=== PATIENT | male | born 1955 | race American Indian/Alaskan Native ===

== ENCOUNTER 2017-09-04 17:08 | Inpatient (IN) | payer MEDICAID, MEDICARE, OTHER ==
[2017-09-04 18:18] LABS: ANION GAP 19.6; CHLORIDE,CL 81 mmol/L (101-111); SODIUM,NA 124 mmol/L (135-145)
--- NOTE | 2017-09-04 19:12 | EDM.PDOC ---
Scribed by Lidya Fang 09/04/17 [id number] for Gisel Araujo NP ED HPI GENERAL MEDICAL PROBLEM - General Chief Complaint: Head Injury Stated Complaint: HEAT [id number] AGO, CANT WALK, [id number] Time Seen by Provider: 09/04/17 17:34 Source of Information: Reports: Patient, RN, RN Notes Reviewed History Limitations: Reports: No Limitations - History of Present Illness INITIAL COMMENTS - FREE TEXT/NARRATIVE: Patient fell a couple of days ago and hit his head. States he did not loose consciousness. He has no pain. He does have trouble walking. Drinks alcohol quite a bit. Patient denies dizziness. Location: Reports: Head Severity: Mild Improves with: Reports: None Worsens with: Reports: None Associated Symptoms: Reports: No Other Symptoms - Related Data Allergies Allergy/AdvReac Type Severity Reaction Status Date / Time No Known Allergies Allergy Verified 09/04/17 17:27 Home Meds: Home Meds . [No Known Home Meds] 09/04/17 [History] Social & Family History - Family History Family Medical History: Noncontributory ED ROS GENERAL - Review of Systems Review Of Systems: ROS reveals no pertinent complaints other than HPI. ED EXAM, HEAD INJURY - Physical Exam Exam: See Below Exam Limited By: No Limitations General Appearance: Alert, WD/WN, No Apparent Distress Head: Atraumatic, Normocephalic Eyes: Bilateral Eye: Normal Inspection Ears: Other (very hard of hearing) Nose: Normal Inspection, Normal Mucousa, No Blood Throat/Mouth: Normal Inspection, Normal Lips, Normal Teeth, Normal Gums, Normal Oropharynx, Normal Voice, No Airway Compromise Neck: Non-Tender, Full Range of Motion, Normal Alignment, Normal Inspection Respiratory: Rhonchi (right base.) Cardiovascular: Normal Peripheral Pulses, Regular Rate, Rhythm, No Edema, No Gallop, No JVD, No Murmur, No Rub GI/Abdominal Exam: Normal Bowel Sounds, Soft, Non-Tender, No Organomegaly, No Distention, No Abnormal Bruit, No Mass (Male) Exam: Deferred Rectal (Males) Exam: Deferred Back Exam: Normal Inspection Extremities: Other (decreased range of motion) Skin: Normal Color, Warm/Dry Course - Vital Signs Last Recorded V/S: Last Vital Signs Temp 98.2 F 09/04/17 18:52 Pulse 103 H 09/04/17 18:52 Resp 20 09/04/17 18:52 BP 128/68 09/04/17 18:52 Pulse Ox 94 L 09/04/17 18:52 - Orders/Labs/Meds Labs: Laboratory Tests 09/04/17 09/04/17 09/04/17 Range/Units 17:48 17:48 18:08 WBC 7.7 (5.0-10.0) 10^3/uL RBC 5.27 (4.6-6.2) 10^6/uL Hgb 17.0 (14.0-18.0) g/dL Hct 47.0 (40.0-54.0) % MCV 89.2 (80-100) fL MCH 32.3 (27.0-34.0) pg MCHC 36.2 H (33.0-35.0) g/dL Plt Count 177 (150-450) 10^3/uL Neut % (Auto) 65.8 (42.2-75.2) % Lymph % (Auto) 14.7 L (20.5-50.1) % [place] % (Auto) 19.1 H (2-8) % Eos % (Auto) 0.1 L (1.0-3.0) % Baso % (Auto) 0.3 (0.0-1.0) % Sodium 124 L (135-145) mmol/L Potassium 2.6 L (3.6-5.0) mmol/L Chloride 81 L (101-111) mmol/L Carbon Dioxide 26.0 (21.0-31.0) mmol/L Anion Gap 19.6 BUN 15 (7-18) mg/dL Creatinine 0.7 (0.6-1.3) mg/dL Est Cr Clr Drug Dosing 90.09 mL/min Estimated GFR (MDRD) > 60 BUN/Creatinine Ratio 21.42 Glucose 149 H (74-105) mg/dL Calcium 8.3 L (8.4-10.2) mg/dl Total Bilirubin 2.5 H (0.2-1.0) mg/dL AST 72 H (10-42) IU/L ALT 62 H (10-60) IU/L Alkaline Phosphatase 76 (42-121) IU/L Total Protein 8.8 H (6.7-8.2) g/dl Albumin 3.8 (3.2-5.5) g/dl Globulin 5.0 Albumin/Globulin Ratio 0.76 Urine Color Yellow (YELLOW) Urine Appearance Slightly cloudy (CLEAR) Urine pH 6.5 (5.0-9.0) Ur Specific [place] 1.015 (1.005-1.030) Urine Protein 100 H (NEGATIVE) Urine Glucose (UA) 100 H (NEGATIVE) Urine Ketones 40 H (NEGATIVE) Urine Occult Blood Trace-intact H (NEGATIVE) Urine Nitrite Negative (NEGATIVE) Urine Bilirubin Small H (NEGATIVE) Urine Urobilinogen >=8.0 H (0.2-1.0) mg/dL Ur Leukocyte Esterase Negative (NEGATIVE) Urine RBC 10-20 H /HPF Urine WBC 0-5 (0-5/HPF) /HPF Ur Epithelial Cells Rare /HPF Amorphous Sediment Few (0/HPF) /HPF Urine Bacteria Few (0-FEW/HPF) /HPF Urine Mucus Few H /LPF Urine Opiates Screen (NEGATIVE) Ur Oxycodone Screen (NEGATIVE) Urine Methadone Screen (NEGATIVE) Ur Barbiturates Screen (NEGATIVE) U Tricyclic Antidepress (NEGATIVE) Ur Phencyclidine Scrn (NEGATIVE) Ur Amphetamine Screen (NEGATIVE) U Methamphetamines Scrn (NEGATIVE) Urine MDMA Screen (NEGATIVE) U Benzodiazepines Scrn (NEGATIVE) Urine Cocaine Screen (NEGATIVE) U Marijuana (THC) Screen (NEGATIVE) Ethyl Alcohol < 5 mg/dL 09/04/17 Range/Units 18:08 WBC (5.0-10.0) 10^3/uL RBC (4.6-6.2) 10^6/uL Hgb (14.0-18.0) g/dL Hct (40.0-54.0) % MCV (80-100) fL MCH (27.0-34.0) pg MCHC (33.0-35.0) g/dL Plt Count (150-450) 10^3/uL Neut % (Auto) (42.2-75.2) % Lymph % (Auto) (20.5-50.1) % [place] % (Auto) (2-8) % Eos % (Auto) (1.0-3.0) % Baso % (Auto) (0.0-1.0) % Sodium (135-145) mmol/L Potassium (3.6-5.0) mmol/L Chloride (101-111) mmol/L Carbon Dioxide (21.0-31.0) mmol/L Anion Gap BUN (7-18) mg/dL Creatinine (0.6-1.3) mg/dL Est Cr Clr Drug Dosing mL/min Estimated GFR (MDRD) BUN/Creatinine Ratio Glucose (74-105) mg/dL Calcium (8.4-10.2) mg/dl Total Bilirubin (0.2-1.0) mg/dL AST (10-42) IU/L ALT (10-60) IU/L Alkaline Phosphatase (42-121) IU/L Total Protein (6.7-8.2) g/dl Albumin (3.2-5.5) g/dl Globulin Albumin/Globulin Ratio Urine Color (YELLOW) Urine Appearance (CLEAR) Urine pH (5.0-9.0) Ur Specific [place] (1.005-1.030) Urine Protein (NEGATIVE) Urine Glucose (UA) (NEGATIVE) Urine Ketones (NEGATIVE) Urine Occult Blood (NEGATIVE) Urine Nitrite (NEGATIVE) Urine Bilirubin (NEGATIVE) Urine Urobilinogen (0.2-1.0) mg/dL Ur Leukocyte Esterase (NEGATIVE) Urine RBC /HPF Urine WBC (0-5/HPF) /HPF Ur Epithelial Cells /HPF Amorphous Sediment (0/HPF) /HPF Urine Bacteria (0-FEW/HPF) /HPF Urine Mucus /LPF Urine Opiates Screen Negative (NEGATIVE) Ur Oxycodone Screen Negative (NEGATIVE) Urine Methadone Screen Negative (NEGATIVE) Ur Barbiturates Screen Negative (NEGATIVE) U Tricyclic Antidepress Negative (NEGATIVE) Ur Phencyclidine Scrn Negative (NEGATIVE) Ur Amphetamine Screen Negative (NEGATIVE) U Methamphetamines Scrn Negative (NEGATIVE) Urine MDMA Screen Negative (NEGATIVE) U Benzodiazepines Scrn Negative (NEGATIVE) Urine Cocaine Screen Negative (NEGATIVE) U Marijuana (THC) Screen Negative (NEGATIVE) Ethyl Alcohol mg/dL - Radiology Interpretation Free Text/Narrative:: Head CT without IV contrast: No acute findins Xray Pelvis: No acute findings See rad report Departure - Departure Time of Disposition: 19:11 Disposition: Refer to Observation Condition: Fair Clinical Impression: Hypokalemia, Hyponatremia, Hypochloremia, Elevated liver enzymes, Alcohol abuse Fall Qualifiers: Encounter type: initial encounter Qualified Code(s): W19.XXXA - Unspecified fall, initial encounter - Discharge Information Forms: ED Department Discharge I have read and agree with the documentation that has been completed regarding this visit. By signing this record, I attest that the documentation was completed in my physical presence and is an accurate record of the encounter.
[2017-09-04] MEDS ORDERED: Ibuprofen 400 MG Tab PO PRN (20:57)
[2017-09-04] MEDS ORDERED: Zolpidem 5 MG Tab PO PRN (20:57)
[2017-09-04] MEDS ORDERED: Ondansetron 4 MG/2 ML SDV IVPUSH PRN (20:57)
--- NOTE | 2017-09-04 21:04 | PCM.HP ---
H&P History of Present Illness - General Date of Service: 09/04/17 Admit Problem/Dx: Admission Diagnosis/Problem Admission Diagnosis/Problem Hypokalemia Source of Information: Patient, Old Records (From [facility] and [facility]), Provider ( From the ER) - History of Present Illness Initial Comments - Free Text/Narative: The patient is a 61-year-old gentleman who is a poor historian. He says he is continuing with the family including granddaughter. He is taking no medication. No significant prior ER visit or visit at [facility]. He was worked up for hearing loss. The patient was brought into the emergency room by family with concern of frequent falling. He says he fell a few days ago because of pain in the leg. There is really no reliable information what happened, if there was any syncopal episode or loss of consciousness. He says he has pain in the left upper leg. According to staff the patient has a history of heavy alcohol intake. He denies alcohol intake, admits smoking 1 pack of cigarettes a day. He says he is not taking any medications. - Related Data Allergies/Adverse Reactions: Allergies Allergy/AdvReac Type Severity Reaction Status Date / Time No Known Allergies Allergy Verified 09/04/17 20:18 Home Medications: Home Meds . [No Known Home Meds] 09/04/17 [History] Past Medical History Musculoskeletal History: Reports: Other (See Below) Other Musculoskeletal History: degenerative disc disease lumbosacral - Past Surgical History Neurological Surgical History: Reports: Lumbar Spine Other Neurological Surgeries/Procedures: L5-S1 lumbar spinal stenosis Social & Family History - Family History Family Medical History: Noncontributory - Tobacco Use Smoking Status *Q: Current Every Day Smoker Years of Tobacco use: 30 Packs/Tins Daily: 1 Tobacco Use Comment: smokes 1 cigarette/day for unknown amount of years - Caffeine Use Caffeine Use: Reports: None - Recreational Drug Use Recreational Drug Use: No H&P Review of Systems - Review of Systems: Review Of Systems: See Below General: Denies: Fever, Chills Pulmonary: Reports: Cough. Denies: Sputum Cardiovascular: Denies: Chest Pain Gastrointestinal: Denies: Abdominal Pain, Diarrhea, Nausea Genitourinary: Denies: Dysuria Musculoskeletal: Reports: Leg Pain (Left upper leg) Neurological: Denies: Headache Exam - Exam Exam: See Below - Vital Signs Vital Signs: Last Vital Signs Temp 36.2 C 09/04/17 19:53 Pulse 100 09/04/17 19:53 Resp 18 09/04/17 19:53 BP 136/72 09/04/17 19:53 Pulse Ox 97 09/04/17 19:53 Weight: 54.431 kg - Exam General: Alert, Oriented Neck: Supple Lungs: Clear to Auscultation, Normal Respiratory Effort. No: Rales Cardiovascular: Regular Rate, Regular Rhythm GI/Abdominal Exam: Normal Bowel Sounds, Soft, Non-Tender Extremities: No Pedal Edema, Other (Good range of motion, good strength in bilateral lower extremities. No significant tenderness on examination.) Neuro Extensive - Mental Status: Alert, Oriented x3, Normal Mood/Affect, Normal Cognition Psychiatric: Alert, Normal Affect, Normal Mood - Patient Data Result Diagrams: 09/04/17 17:48 09/04/17 17:48 Imaging Impressions Last 24 hrs: CT of the head and x-ray of the pelvis showed no significant acute change. *Q Meaningful Use (ADM) - VTE *Q VTE Criteria *Q: - Stroke *Q Stroke Criteria *Q: - AMI *Q AMI Criteria *Q: - Problem List (1) Elevated liver enzymes SNOMED Code(s): 596281322 ICD Code: R74.8 - ABNORMAL LEVELS OF OTHER SERUM ENZYMES Status: Acute Current Visit: Yes (2) Fall SNOMED Code(s): 2719694 ICD Code: W19.XXXA - UNSPECIFIED FALL, INITIAL ENCOUNTER Status: Acute Current Visit: Yes Qualifiers: Encounter type: initial encounter Qualified Code(s): W19.XXXA - Unspecified fall, initial encounter (3) Hypokalemia SNOMED Code(s): 38346171 ICD Code: E87.6 - HYPOKALEMIA Status: Acute Current Visit: Yes (4) Hyponatremia SNOMED Code(s): 60634659 ICD Code: E87.1 - HYPO-OSMOLALITY AND HYPONATREMIA Status: Acute Current Visit: Yes Problem List Initiated/Reviewed/Updated: Yes Orders Last 24hrs: Active Orders 24 hr Category Date Time Status Patient Status [ADT] Routine ADT 09/04/17 20:57 Ordered Antiembolic Devices [RC] PER UNIT ROUTINE Care 09/04/17 20:59 Ordered Oxygen Therapy [RC] PRN Care 09/04/17 20:57 Ordered Peripheral IV Care [RC] . DIRECTED Care 09/04/17 20:59 Ordered Up With Assistance [RC] ASDIRECTED Care 09/04/17 20:57 Ordered VTE/DVT Education [RC] PER UNIT ROUTINE Care 09/04/17 20:57 Ordered Vital Signs [RC] Q4H Care 09/04/17 20:57 Ordered OT Evaluation and Treatment [CONS] Routine Cons 09/04/17 20:32 Active PT Evaluation and Treatment [CONS] Routine Cons 09/04/17 20:32 Active Regular Diet [DIET] Diet 09/04/17 Breakfast Ordered CORTISOL [REF] AM Lab 09/05/17 05:11 Ordered CPK [CREATINE KINASE,CK] [CHEM] AM Lab 09/05/17 05:11 Ordered TSH ULTRASENSITIVE [CHEM] AM Lab 09/05/17 05:11 Ordered Acetaminophen [Tylenol] Med 09/04/17 20:57 Ordered 650 mg PO Q4H PRN Heparin Sodium Med 09/04/17 22:00 Ordered 5,000 units SUBCUT Q8HR Ibuprofen [Motrin] Med 09/04/17 20:57 Ordered 400 mg PO Q6H PRN NS + KCl 20mEq/L [Normal Saline with 20 mEq KCl] 1,000 Med 09/04/17 20:45 Active ml IV ASDIRECTED Nicotine [Habitrol] Med 09/05/17 09:00 Active 14 mg TRDERM DAILY Ondansetron [Zofran] Med 09/04/17 20:57 Ordered 4 mg IVPUSH Q6H PRN Potassium Chloride [KCl 10 MEQ in Water 100 ML] 10 meq Med 09/04/17 20:45 Active Premix Bag 1 bag IV Q2H Sodium Chloride 0.9% [Saline Flush] Med 09/04/17 20:57 Ordered 10 ml FLUSH ASDIRECTED PRN Zolpidem [Ambien] Med 09/04/17 20:57 Ordered 5 mg PO BEDTIME PRN Antiembolic Hose [OM.PC] Per Unit Routine Oth 09/04/17 20:58 Ordered Peripheral IV Insertion Adult [OM.PC] Routine Oth 09/04/17 20:57 Ordered Resuscitation Status Routine Resus Stat 09/04/17 20:57 Ordered Medication Orders Potassium Chloride 10 meq/ (Premix) 100 mls @ 100 mls/hr IV Q2H TIA Stop: 09/05/17 07:44 Potassium Chloride/Sodium Chloride (Normal Saline With 20 Meq Kcl) 1,000 mls @ 75 mls/hr IV ASDIRECTED [facility] Nicotine (Habitrol) 14 mg TRDERM DAILY [facility] Assessment/Plan Comment:: The patient is a 61-year-old gentleman who was brought in after family concern of falling. #1 frequent falling per history The patient appears to have no neurological deficit, CT of the head without contrast showed no acute change. He appears to have good strength in extremities. 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
[2017-09-04] MEDS ORDERED: guaiFENesin 100 MG/5 ML Soln 5 ML UD Cup PO PRN (21:06)
[2017-09-04] MEDS: Potassium Chloride 10 MEQ in Premix Bag 1 BAG IV SCH ×3 (21:40→23:53)
[2017-09-04] MEDS: NS + KCl 20mEq/L 1,000 ML IV SCH (21:40)
[2017-09-04] MEDS: Heparin Sodium 5,000 Units/ML Vial SUBCUT SCH (21:44)
[2017-09-05] MEDS: Potassium Chloride 10 MEQ in Premix Bag 1 BAG IV SCH ×6 (01:01→06:12)
[2017-09-05] MEDS: Heparin Sodium 5,000 Units/ML Vial SUBCUT SCH ×3 (06:13→21:24)
[2017-09-05 07:06] LABS: ANION GAP 16.3; CHLORIDE,CL 89 mmol/L (101-111); SODIUM,NA 126 mmol/L (135-145)
[2017-09-05] MEDS: Nicotine 14 MG/24 Hr Patch TRDERM SCH (08:33)
[2017-09-05] MEDS: NS + KCl 20mEq/L 1,000 ML IV SCH (11:24)
--- NOTE | 2017-09-05 13:25 | CR ---
Clinical history: 61-year-old male with left knee pain. Interpretation: Dense linear arteriosclerotic calcifications soft tissues (diabetic?). Subtle asymmetric narrowing medial joint compartment with some reactive sclerosis suggesting early ar thritis. No bursal effusion. Homogeneous normal bone density without sign of left knee fracture, dislocation or radiopaque loose j oint body. CONCLUSION: Mild osteoarthritis. Arteriovascular disease. No fractures.
[2017-09-05] MEDS: Potassium Chloride 10 MEQ Tab.ER PO SCH ×2 (14:08→21:18)
[2017-09-05] MEDS: Folic Acid 1 MG Tab PO SCH (21:18)
[2017-09-05] MEDS: Multivitamins,Therapeutic Tab PO SCH (21:18)
[2017-09-05] MEDS: Thiamine 100 MG Tab PO SCH (21:18)
[2017-09-06] MEDS: NS + KCl 20mEq/L 1,000 ML IV SCH ×2 (00:46→17:15)
[2017-09-06] MEDS: Heparin Sodium 5,000 Units/ML Vial SUBCUT SCH ×3 (05:40→21:53)
[2017-09-06 07:11] LABS: ANION GAP 12.5; CHLORIDE,CL 93 mmol/L (101-111); SODIUM,NA 127 mmol/L (135-145)
[2017-09-06] MEDS: Nicotine 14 MG/24 Hr Patch TRDERM SCH (08:30)
[2017-09-06] MEDS: Acetaminophen 325 MG Tab PO PRN (10:13)
--- NOTE | 2017-09-06 10:21 | PCM.PN ---
- General Info Date of Service: 09/05/17 Subjective Update: Continues to have pain in the left lower extremity but only with activity. No pain at rest. He is able to move all extremities well but needs 1-2 person assist to get out of bed. They drawn during The head low-grade temperature. He continues to cough. Functional Status: Denies: Pain Controlled (Low-grade) - Review of Systems General: Reports: Fever Pulmonary: Denies: Shortness of Breath Cardiovascular: Denies: Chest Pain, Edema Genitourinary: Denies: Dysuria - Patient Data Vitals - Most Recent: Last Vital Signs Temp 38.0 C 09/06/17 07:56 Pulse 81 09/06/17 07:56 Resp 20 09/06/17 07:56 BP 122/79 09/06/17 07:56 Pulse Ox 95 09/06/17 07:56 Weight - Most Recent: 54.431 kg I&O - Last 24 Hours: Intake & Output 09/05/17 09/06/17 09/06/17 22:59 06:59 14:59 Intake Total 2000 698 120 Output Total 100 100 200 Balance 1901 598 -80 Lab Results Last 24 Hours: Laboratory Results - last 24 hr 09/06/17 09/06/17 Range/Units 06:18 06:18 WBC 6.5 (5.0-10.0) 10^3/uL RBC 4.47 L (4.6-6.2) 10^6/uL Hgb 14.3 (14.0-18.0) g/dL Hct 40.8 (40.0-54.0) % MCV 91.3 (80-100) fL MCH 32.0 (27.0-34.0) pg MCHC 35.0 (33.0-35.0) g/dL Plt Count 175 (150-450) 10^3/uL Neut % (Auto) 59.2 (42.2-75.2) % Lymph % (Auto) 21.3 (20.5-50.1) % [place] % (Auto) 18.6 H (2-8) % Eos % (Auto) 0.6 L (1.0-3.0) % Baso % (Auto) 0.3 (0.0-1.0) % Add Manual Diff Sodium 127 L (135-145) mmol/L Potassium 3.5 L (3.6-5.0) mmol/L Chloride 93 L (101-111) mmol/L Carbon Dioxide 25.0 (21.0-31.0) mmol/L Anion Gap 12.5 BUN 6 L (7-18) mg/dL Creatinine 0.4 L (0.6-1.3) mg/dL Est Cr Clr Drug Dosing 145.53 mL/min Estimated GFR (MDRD) > 60 Glucose 115 H (74-105) mg/dL Calcium 7.9 L (8.4-10.2) mg/dl Creatine Kinase 167 (26-174) IU/L Med Orders - Current: Current Medications Acetaminophen (Tylenol) 650 mg PO Q4H PRN PRN Reason: Pain (Mild 1-3)/fever Last Admin: 09/06/17 10:13 Dose: 650 mg Ceftriaxone Sodium (Rocephin) 1 gm IVPUSH Q24H [facility] Folic Acid (Folic Acid) 1 mg PO BEDTIME [facility] Last Admin: 09/05/17 21:18 Dose: 1 mg Guaifenesin (Robitussin) 100 mg PO Q6H PRN PRN Reason: Cough Heparin Sodium (Porcine) (Heparin Sodium) 5,000 units SUBCUT Q8HR [facility] Last Admin: 09/06/17 05:40 Dose: 5,000 units Potassium Chloride/Sodium Chloride (Normal Saline With 20 Meq Kcl) 1,000 mls @ 75 mls/hr IV ASDIRECTED [facility] Last Admin: 09/06/17 00:46 Dose: 75 mls/hr Azithromycin 500 mg/ Sodium (Chloride) 250 mls @ 250 mls/hr IV Q24H [facility] Ibuprofen (Motrin) 400 mg PO Q6H PRN PRN Reason: Pain (mild 1-3) Multivitamins (Thera) 1 each PO BEDTIME [facility] Last Admin: 09/05/17 21:18 Dose: 1 each Nicotine (Habitrol) 14 mg TRDERM DAILY [facility] Last Admin: 09/06/17 08:30 Dose: Not Given Ondansetron HCl (Zofran) 4 mg IVPUSH Q6H PRN PRN Reason: Nausea/Vomiting Senna/Docusate Sodium (Senna Plus) 1 tab PO BID [facility] Last Admin: 09/06/17 08:30 Dose: 1 tab Sodium Chloride (Saline Flush) 10 ml FLUSH ASDIRECTED PRN PRN Reason: Keep Vein Open Thiamine HCl (Vitamin B-1) 100 mg PO BEDTIME [facility] Last Admin: 09/05/17 21:18 Dose: 100 mg Zolpidem Tartrate (Ambien) 5 mg PO BEDTIME PRN PRN Reason: Sleep Discontinued Medications Potassium Chloride 10 meq/ (Premix) 100 mls @ 100 mls/hr IV Q2H [facility] Stop: 09/05/17 07:44 Last Admin: 09/05/17 06:12 Dose: Not Given Potassium Chloride (Klor-Con 10) 40 meq PO TID [facility] Stop: 09/05/17 21:01 Last Admin: 09/05/17 21:18 Dose: 40 meq - Exam General: Alert, Oriented Lungs: Clear to Auscultation, Normal Respiratory Effort GI/Abdominal Exam: Normal Bowel Sounds, Soft, Non-Tender Extremities: Non-Tender (Tenderness to deep palpation of the left quadriceps muscles). No: Pedal Edema - Problem List & Annotations (1) Elevated liver enzymes SNOMED Code(s): 685981837 Code(s): R74.8 - ABNORMAL LEVELS OF OTHER SERUM ENZYMES Status: Acute Current Visit: Yes (2) Fall SNOMED Code(s): 2976078 Code(s): W19.XXXA - UNSPECIFIED FALL, INITIAL ENCOUNTER Status: Acute Current Visit: Yes Qualifiers: Encounter type: initial encounter Qualified Code(s): W19.XXXA - Unspecified fall, initial encounter (3) Hypokalemia SNOMED Code(s): 97675828 Code(s): E87.6 - HYPOKALEMIA Status: Acute Current Visit: Yes (4) Hyponatremia SNOMED Code(s): 39939763 Code(s): E87.1 - HYPO-OSMOLALITY AND HYPONATREMIA Status: Acute Current Visit: Yes - Problem List Review Problem List Initiated/Reviewed/Updated: Yes - My Orders Last 24 Hours: My Active Orders 09/05/17 21:00 Docusate Sodium/Sennosides [Senna Plus] 1 tab PO BID 09/06/17 09:30 Azithromycin [Zithromax] 500 mg Sodium Chloride 0.9% [Normal Saline] 250 ml IV Q24H cefTRIAXone [Rocephin] 1 gm IVPUSH Q24H 09/06/17 10:16 CULTURE BLOOD [BC] Stat CULTURE BLOOD [BC] Stat Blood Culture x2 Reflex Set [OM.PC] Stat - Plan Plan:: The patient is a 61-year-old gentleman who was brought in after family concern of falling. #1 frequent fall per history The patient appears to have no neurological deficit, CT of the head without contrast showed no acute change. He appears to have good strength in extremities. I will ask physical and occupational therapy evaluation and treatment when available In the meantime he'll to nurses #2 severe hypokalemia We'll continue to replace that and recheck in the morning #3 hyponatremia Will hydrate the patient #4 history of significant alcohol intake The patient might have alcohol related neuropathy will supplement thiamine folate multivitamin #5 elevated blood sugar noted Rechecking the morning, Fasting Sample #6 smoking Use nicotine patch #7 DVT prophylaxis will be with subcutaneous heparin
[2017-09-06] MEDS ORDERED: Potassium Chloride 10 MEQ Tab.ER PO ONE (10:23)
--- NOTE | 2017-09-06 10:23 | PCM.PN ---
- General Info Date of Service: 09/06/17 Admission Dx/Problem (Free Text): Admission Diagnosis/Problem Admission Diagnosis/Problem Hypokalemia Subjective Update: No complains of pain today.. He is able to move all extremities well but needs 1-2 person assist to get out of bed. Today has further increased temperature. He continues to cough. Nonproductive. Could not get a sputum culture Functional Status: Reports: Pain Controlled - Review of Systems General: Reports: Fever, Weakness Pulmonary: Denies: Shortness of Breath Cardiovascular: Denies: Chest Pain Gastrointestinal: Denies: Abdominal Pain Genitourinary: Denies: Dysuria - Patient Data Vitals - Most Recent: Last Vital Signs Temp 38.0 C 09/06/17 07:56 Pulse 81 09/06/17 07:56 Resp 20 09/06/17 07:56 BP 122/79 09/06/17 07:56 Pulse Ox 95 09/06/17 07:56 Weight - Most Recent: 54.431 kg I&O - Last 24 Hours: Intake & Output 09/05/17 09/06/17 09/06/17 22:59 06:59 14:59 Intake Total 2000 698 120 Output Total 100 100 200 Balance 1901 598 -80 Lab Results Last 24 Hours: Laboratory Results - last 24 hr 09/06/17 09/06/17 Range/Units 06:18 06:18 WBC 6.5 (5.0-10.0) 10^3/uL RBC 4.47 L (4.6-6.2) 10^6/uL Hgb 14.3 (14.0-18.0) g/dL Hct 40.8 (40.0-54.0) % MCV 91.3 (80-100) fL MCH 32.0 (27.0-34.0) pg MCHC 35.0 (33.0-35.0) g/dL Plt Count 175 (150-450) 10^3/uL Neut % (Auto) 59.2 (42.2-75.2) % Lymph % (Auto) 21.3 (20.5-50.1) % [place] % (Auto) 18.6 H (2-8) % Eos % (Auto) 0.6 L (1.0-3.0) % Baso % (Auto) 0.3 (0.0-1.0) % Add Manual Diff Sodium 127 L (135-145) mmol/L Potassium 3.5 L (3.6-5.0) mmol/L Chloride 93 L (101-111) mmol/L Carbon Dioxide 25.0 (21.0-31.0) mmol/L Anion Gap 12.5 BUN 6 L (7-18) mg/dL Creatinine 0.4 L (0.6-1.3) mg/dL Est Cr Clr Drug Dosing 145.53 mL/min Estimated GFR (MDRD) > 60 Glucose 115 H (74-105) mg/dL Calcium 7.9 L (8.4-10.2) mg/dl Creatine Kinase 167 (26-174) IU/L Med Orders - Current: Current Medications Acetaminophen (Tylenol) 650 mg PO Q4H PRN PRN Reason: Pain (Mild 1-3)/fever Last Admin: 09/06/17 10:13 Dose: 650 mg Ceftriaxone Sodium (Rocephin) 1 gm IVPUSH Q24H [facility] Folic Acid (Folic Acid) 1 mg PO BEDTIME [facility] Last Admin: 09/05/17 21:18 Dose: 1 mg Guaifenesin (Robitussin) 100 mg PO Q6H PRN PRN Reason: Cough Heparin Sodium (Porcine) (Heparin Sodium) 5,000 units SUBCUT Q8HR [facility] Last Admin: 09/06/17 05:40 Dose: 5,000 units Potassium Chloride/Sodium Chloride (Normal Saline With 20 Meq Kcl) 1,000 mls @ 75 mls/hr IV ASDIRECTED [facility] Last Admin: 09/06/17 00:46 Dose: 75 mls/hr Azithromycin 500 mg/ Sodium (Chloride) 250 mls @ 250 mls/hr IV Q24H [facility] Ibuprofen (Motrin) 400 mg PO Q6H PRN PRN Reason: Pain (mild 1-3) Multivitamins (Thera) 1 each PO BEDTIME [facility] Last Admin: 09/05/17 21:18 Dose: 1 each Nicotine (Habitrol) 14 mg TRDERM DAILY [facility] Last Admin: 09/06/17 08:30 Dose: Not Given Ondansetron HCl (Zofran) 4 mg IVPUSH Q6H PRN PRN Reason: Nausea/Vomiting Senna/Docusate Sodium (Senna Plus) 1 tab PO BID [facility] Last Admin: 09/06/17 08:30 Dose: 1 tab Sodium Chloride (Saline Flush) 10 ml FLUSH ASDIRECTED PRN PRN Reason: Keep Vein Open Thiamine HCl (Vitamin B-1) 100 mg PO BEDTIME [facility] Last Admin: 09/05/17 21:18 Dose: 100 mg Zolpidem Tartrate (Ambien) 5 mg PO BEDTIME PRN PRN Reason: Sleep Discontinued Medications Potassium Chloride 10 meq/ (Premix) 100 mls @ 100 mls/hr IV Q2H [facility] Stop: 09/05/17 07:44 Last Admin: 09/05/17 06:12 Dose: Not Given Potassium Chloride (Klor-Con 10) 40 meq PO TID [facility] Stop: 09/05/17 21:01 Last Admin: 09/05/17 21:18 Dose: 40 meq - Exam General: Alert, Oriented Neck: Supple Lungs: Clear to Auscultation, Normal Respiratory Effort Cardiovascular: Regular Rate, Regular Rhythm Skin: Warm, Dry Neurological: No New Focal Deficit Psy/Mental Status: Alert, Normal Affect - Problem List & Annotations (1) Elevated liver enzymes SNOMED Code(s): 656791190 Code(s): R74.8 - ABNORMAL LEVELS OF OTHER SERUM ENZYMES Status: Acute Current Visit: Yes (2) Fall SNOMED Code(s): 4060493 Code(s): W19.XXXA - UNSPECIFIED FALL, INITIAL ENCOUNTER Status: Acute Current Visit: Yes Qualifiers: Encounter type: initial encounter Qualified Code(s): W19.XXXA - Unspecified fall, initial encounter (3) Hypokalemia SNOMED Code(s): 24173242 Code(s): E87.6 - HYPOKALEMIA Status: Acute Current Visit: Yes (4) Hyponatremia SNOMED Code(s): 44590889 Code(s): E87.1 - HYPO-OSMOLALITY AND HYPONATREMIA Status: Acute Current Visit: Yes - Problem List Review Problem List Initiated/Reviewed/Updated: Yes - My Orders Last 24 Hours: My Active Orders 09/05/17 21:00 Docusate Sodium/Sennosides [Senna Plus] 1 tab PO BID 09/06/17 09:30 Azithromycin [Zithromax] 500 mg Sodium Chloride 0.9% [Normal Saline] 250 ml IV Q24H cefTRIAXone [Rocephin] 1 gm IVPUSH Q24H 09/06/17 10:16 CULTURE BLOOD [BC] Stat CULTURE BLOOD [BC] Stat Blood Culture x2 Reflex Set [OM.PC] Stat - Plan Plan:: The patient is a 61-year-old gentleman who was brought in after family concern of falling. #1 frequent fall per history The patient appears to have no neurological deficit, CT of the head without contrast showed no acute change. He appears to have good strength in extremities. 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
[2017-09-06] MEDS: cefTRIAXone 1 GM Vial IVPUSH SCH (10:43)
[2017-09-06] MEDS: Azithromycin 500 MG in Sodium Chloride 0.9% 250 ML IV SCH (10:48)
[2017-09-06] MEDS: Thiamine 100 MG Tab PO SCH (21:54)
[2017-09-06] MEDS: Folic Acid 1 MG Tab PO SCH (21:54)
[2017-09-06] MEDS: Multivitamins,Therapeutic Tab PO SCH (21:54)
[2017-09-07] MEDS: Acetaminophen 325 MG Tab PO PRN ×4 (04:14→20:18)
[2017-09-07] MEDS: Heparin Sodium 5,000 Units/ML Vial SUBCUT SCH ×3 (06:54→21:40)
[2017-09-07] MEDS: NS + KCl 20mEq/L 1,000 ML IV SCH (06:55)
[2017-09-07 07:07] LABS: ANION GAP 12.6; CHLORIDE,CL 98 mmol/L (101-111); SODIUM,NA 132 mmol/L (135-145)
[2017-09-07] MEDS: Nicotine 14 MG/24 Hr Patch TRDERM SCH (09:14)
--- NOTE | 2017-09-07 10:51 | PCM.PN ---
- General Info Date of Service: 09/07/17 Admission Dx/Problem (Free Text): Admission Diagnosis/Problem Admission Diagnosis/Problem Hypokalemia Subjective Update: No complains of pain today. his strength and ambulation is getting better. He was operated walker and walking on the coronary door yesterday. - Review of Systems General: Reports: No Symptoms. Denies: Fever Pulmonary: Denies: Shortness of Breath Cardiovascular: Denies: Chest Pain Gastrointestinal: Denies: Abdominal Pain Musculoskeletal: Reports: Leg Pain (is getting better and ambulating better) Neurological: Denies: Confusion - Patient Data Vitals - Most Recent: Last Vital Signs Temp 36.8 C 09/07/17 07:00 Pulse 79 09/07/17 07:00 Resp 22 H 09/07/17 07:00 BP 111/58 L 09/07/17 07:00 Pulse Ox 99 09/07/17 07:00 Weight - Most Recent: 54.431 kg I&O - Last 24 Hours: Intake & Output 09/06/17 09/07/17 09/07/17 22:59 06:59 14:59 Intake Total 575 975 Output Total 600 Balance -25 975 Lab Results Last 24 Hours: Laboratory Results - last 24 hr 09/07/17 09/07/17 Range/Units 06:20 06:20 WBC 5.8 (5.0-10.0) 10^3/uL RBC 4.30 L (4.6-6.2) 10^6/uL Hgb 13.9 L (14.0-18.0) g/dL Hct 40.2 (40.0-54.0) % MCV 93.5 (80-100) fL MCH 32.3 (27.0-34.0) pg MCHC 34.6 (33.0-35.0) g/dL Plt Count 194 (150-450) 10^3/uL Neut % (Auto) 52.6 (42.2-75.2) % Lymph % (Auto) 23.5 (20.5-50.1) % [place] % (Auto) 20.8 H (2-8) % Eos % (Auto) 2.6 (1.0-3.0) % Baso % (Auto) 0.5 (0.0-1.0) % Sodium 132 L (135-145) mmol/L Potassium 3.6 (3.6-5.0) mmol/L Chloride 98 L (101-111) mmol/L Carbon Dioxide 25.0 (21.0-31.0) mmol/L Anion Gap 12.6 BUN 6 L (7-18) mg/dL Creatinine 0.5 L (0.6-1.3) mg/dL Est Cr Clr Drug Dosing 116.42 mL/min Estimated GFR (MDRD) > 60 Glucose 98 (74-105) mg/dL Calcium 8.0 L (8.4-10.2) mg/dl [place] Results Last 24 Hours: Microbiology 09/06/17 10:28 Aerobic Blood Culture - Preliminary Blood - Venous - Lab Draw NO GROWTH AFTER 1 DAY Anaerobic Blood Culture - Preliminary NO GROWTH AFTER 1 DAY 09/06/17 10:25 Aerobic Blood Culture - Preliminary Blood - Venous NO GROWTH AFTER 1 DAY Anaerobic Blood Culture - Preliminary NO GROWTH AFTER 1 DAY Med Orders - Current: Current Medications Acetaminophen (Tylenol) 650 mg PO Q4H PRN PRN Reason: Pain (Mild 1-3)/fever Last Admin: 09/07/17 09:14 Dose: 650 mg Ceftriaxone Sodium (Rocephin) 1 gm IVPUSH Q24H [facility] Last Admin: 09/06/17 10:43 Dose: 1 gm Folic Acid (Folic Acid) 1 mg PO BEDTIME [facility] Last Admin: 09/06/17 21:54 Dose: 1 mg Guaifenesin (Robitussin) 100 mg PO Q6H PRN PRN Reason: Cough Heparin Sodium (Porcine) (Heparin Sodium) 5,000 units SUBCUT Q8HR [facility] Last Admin: 09/07/17 06:54 Dose: 5,000 units Azithromycin 500 mg/ Sodium (Chloride) 250 mls @ 250 mls/hr IV Q24H [facility] Last Infusion: 09/06/17 17:13 Dose: Infused Ibuprofen (Motrin) 400 mg PO Q6H PRN PRN Reason: Pain (mild 1-3) Multivitamins (Thera) 1 each PO BEDTIME [facility] Last Admin: 09/06/17 21:54 Dose: 1 each Nicotine (Habitrol) 14 mg TRDERM DAILY [facility] Last Admin: 09/07/17 09:14 Dose: Not Given Ondansetron HCl (Zofran) 4 mg IVPUSH Q6H PRN PRN Reason: Nausea/Vomiting Senna/Docusate Sodium (Senna Plus) 1 tab PO BID [facility] Last Admin: 09/07/17 09:15 Dose: 1 tab Sodium Chloride (Saline Flush) 10 ml FLUSH ASDIRECTED PRN PRN Reason: Keep Vein Open Thiamine HCl (Vitamin B-1) 100 mg PO BEDTIME [facility] Last Admin: 09/06/17 21:54 Dose: 100 mg Zolpidem Tartrate (Ambien) 5 mg PO BEDTIME PRN PRN Reason: Sleep Discontinued Medications Potassium Chloride 10 meq/ (Premix) 100 mls @ 100 mls/hr IV Q2H [facility] Stop: 09/05/17 07:44 Last Admin: 09/05/17 06:12 Dose: Not Given Potassium Chloride/Sodium Chloride (Normal Saline With 20 Meq Kcl) 1,000 mls @ 75 mls/hr IV ASDIRECTED [facility] Last Admin: 09/07/17 06:55 Dose: 75 mls/hr Potassium Chloride (Klor-Con 10) 40 meq PO TID [facility] Stop: 09/05/17 21:01 Last Admin: 09/05/17 21:18 Dose: 40 meq Potassium Chloride (Klor-Con 10) 40 meq PO ONETIME ONE Stop: 09/06/17 10:24 Last Admin: 09/06/17 10:58 Dose: 40 meq - Exam General: Alert, Oriented Neck: Supple Lungs: Normal Respiratory Effort, Decreased Breath Sounds Cardiovascular: Regular Rate, Regular Rhythm GI/Abdominal Exam: Normal Bowel Sounds, Soft, Non-Tender Extremities: No Pedal Edema - Problem List & Annotations (1) Elevated liver enzymes SNOMED Code(s): 932078590 Code(s): R74.8 - ABNORMAL LEVELS OF OTHER SERUM ENZYMES Status: Acute Current Visit: Yes (2) Fall SNOMED Code(s): 2618092 Code(s): W19.XXXA - UNSPECIFIED FALL, INITIAL ENCOUNTER Status: Acute Current Visit: Yes Qualifiers: Encounter type: initial encounter Qualified Code(s): W19.XXXA - Unspecified fall, initial encounter (3) Hypokalemia SNOMED Code(s): 26989675 Code(s): E87.6 - HYPOKALEMIA Status: Acute Current Visit: Yes (4) Hyponatremia SNOMED Code(s): 85071827 Code(s): E87.1 - HYPO-OSMOLALITY AND HYPONATREMIA Status: Acute Current Visit: Yes - Problem List Review Problem List Initiated/Reviewed/Updated: Yes - My Orders Last 24 Hours: My Active Orders 09/06/17 10:16 Blood Culture x2 Reflex Set [OM.PC] Stat 09/06/17 10:25 CULTURE BLOOD [BC] Stat 09/06/17 10:28 CULTURE BLOOD [BC] Stat 09/08/17 05:15 BASIC METABOLIC PANEL,BMP [CHEM] AM CBC WITH AUTO DIFF [HEME] AM - Plan Plan:: The patient is a 61-year-old gentleman who was brought in after family concern of falling. #1 frequent fall per history The patient appears to have no neurological deficit, CT of the head without contrast showed no acute change. He appears to have good strength in extremities. 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
[2017-09-07] MEDS: cefTRIAXone 1 GM Vial IVPUSH SCH (11:28)
[2017-09-07] MEDS: Azithromycin 500 MG in Sodium Chloride 0.9% 250 ML IV SCH (11:28)
[2017-09-07] MEDS: Multivitamins,Therapeutic Tab PO SCH (20:18)
[2017-09-07] MEDS: Folic Acid 1 MG Tab PO SCH (20:18)
[2017-09-07] MEDS: Thiamine 100 MG Tab PO SCH (20:18)
[2017-09-08] MEDS: Acetaminophen 325 MG Tab PO PRN ×4 (03:09→22:05)
[2017-09-08] MEDS: Heparin Sodium 5,000 Units/ML Vial SUBCUT SCH ×3 (05:34→22:01)
[2017-09-08 07:05] LABS: CHLORIDE,CL 95 mmol/L (101-111); SODIUM,NA 131 mmol/L (135-145)
[2017-09-08] MEDS: Nicotine 14 MG/24 Hr Patch TRDERM SCH (09:49)
[2017-09-08] MEDS: cefTRIAXone 1 GM Vial IVPUSH SCH (09:50)
[2017-09-08] MEDS: Azithromycin 500 MG in Sodium Chloride 0.9% 250 ML IV SCH (09:50)
[2017-09-08] MEDS: Sodium Chloride 0.9% 10 ML Syringe FLUSH PRN (09:50)
[2017-09-08] MEDS ORDERED: Albuterol 0.083% 2.5 MG/3 ML Neb Soln NEB PRN (11:10)
--- NOTE | 2017-09-08 11:14 | PCM.PN ---
- General Info Date of Service: 09/08/17 Admission Dx/Problem (Free Text): Admission Diagnosis/Problem Admission Diagnosis/Problem Hypokalemia Subjective Update: No complains of pain today. his strength and ambulation is getting better, up and walking with stand by assistance has cough, mild sob Functional Status: Reports: Pain Controlled, Tolerating Diet - Review of Systems General: Reports: Weakness (improving). Denies: Fever Pulmonary: Reports: Shortness of Breath Cardiovascular: Denies: Chest Pain Gastrointestinal: Denies: Abdominal Pain Neurological: Denies: Confusion - Patient Data Vitals - Most Recent: Last Vital Signs Temp 37.3 C 09/08/17 07:39 Pulse 77 09/08/17 07:39 Resp 20 09/08/17 07:39 BP 132/79 09/08/17 07:39 Pulse Ox 98 09/08/17 07:39 Weight - Most Recent: 54.431 kg I&O - Last 24 Hours: Intake & Output 09/07/17 09/08/17 09/08/17 22:59 06:59 14:59 Intake Total 350 180 Output Total 200 600 Balance 150 -420 Lab Results Last 24 Hours: Laboratory Results - last 24 hr 09/08/17 09/08/17 Range/Units 06:00 06:00 WBC 5.8 (5.0-10.0) 10^3/uL RBC 4.40 L (4.6-6.2) 10^6/uL Hgb 14.0 (14.0-18.0) g/dL Hct 40.3 (40.0-54.0) % MCV 91.6 (80-100) fL MCH 31.8 (27.0-34.0) pg MCHC 34.7 (33.0-35.0) g/dL Plt Count 244 (150-450) 10^3/uL Neut % (Auto) 51.6 (42.2-75.2) % Lymph % (Auto) 24.2 (20.5-50.1) % [place] % (Auto) 20.2 H (2-8) % Eos % (Auto) 3.5 H (1.0-3.0) % Baso % (Auto) 0.5 (0.0-1.0) % Add Manual Diff Sodium 131 L (135-145) mmol/L Potassium 3.0 L (3.6-5.0) mmol/L Chloride 95 L (101-111) mmol/L Carbon Dioxide 26.0 (21.0-31.0) mmol/L Anion Gap 13.0 BUN 3 L (7-18) mg/dL Creatinine 0.5 L (0.6-1.3) mg/dL Est Cr Clr Drug Dosing 114.91 mL/min Estimated GFR (MDRD) > 60 Glucose 93 (74-105) mg/dL Calcium 8.3 L (8.4-10.2) mg/dl [place]by Results Last 24 Hours: Microbiology 09/06/17 10:28 Aerobic Blood Culture - Preliminary Blood - Venous - Lab Draw NO GROWTH AFTER 2 DAYS Anaerobic Blood Culture - Preliminary NO GROWTH AFTER 2 DAYS 09/06/17 10:25 Aerobic Blood Culture - Preliminary Blood - Venous NO GROWTH AFTER 2 DAYS Anaerobic Blood Culture - Preliminary NO GROWTH AFTER 2 DAYS Med Orders - Current: Current Medications Acetaminophen (Tylenol) 650 mg PO Q4H PRN PRN Reason: Pain (Mild 1-3)/fever Last Admin: 09/08/17 09:59 Dose: 650 mg Ceftriaxone Sodium (Rocephin) 1 gm IVPUSH Q24H [facility] Last Admin: 09/08/17 09:50 Dose: 1 gm Folic Acid (Folic Acid) 1 mg PO BEDTIME [facility] Last Admin: 09/07/17 20:18 Dose: 1 mg Guaifenesin (Robitussin) 100 mg PO Q6H PRN PRN Reason: Cough Heparin Sodium (Porcine) (Heparin Sodium) 5,000 units SUBCUT Q8HR [facility] Last Admin: 09/08/17 05:34 Dose: 5,000 units Azithromycin 500 mg/ Sodium (Chloride) 250 mls @ 250 mls/hr IV Q24H [facility] Last Admin: 09/08/17 09:50 Dose: 100 mls/hr Ibuprofen (Motrin) 400 mg PO Q6H PRN PRN Reason: Pain (mild 1-3) Multivitamins (Thera) 1 each PO BEDTIME [facility] Last Admin: 09/07/17 20:18 Dose: 1 each Nicotine (Habitrol) 14 mg TRDERM DAILY [facility] Last Admin: 09/08/17 09:49 Dose: Not Given Ondansetron HCl (Zofran) 4 mg IVPUSH Q6H PRN PRN Reason: Nausea/Vomiting Senna/Docusate Sodium (Senna Plus) 1 tab PO BID [facility] Last Admin: 09/08/17 09:50 Dose: 1 tab Sodium Chloride (Saline Flush) 10 ml FLUSH ASDIRECTED PRN PRN Reason: Keep Vein Open Last Admin: 09/08/17 09:50 Dose: 10 ml Thiamine HCl (Vitamin B-1) 100 mg PO BEDTIME [facility] Last Admin: 09/07/17 20:18 Dose: 100 mg Zolpidem Tartrate (Ambien) 5 mg PO BEDTIME PRN PRN Reason: Sleep Discontinued Medications Potassium Chloride 10 meq/ (Premix) 100 mls @ 100 mls/hr IV Q2H [facility] Stop: 09/05/17 07:44 Last Admin: 09/05/17 06:12 Dose: Not Given Potassium Chloride/Sodium Chloride (Normal Saline With 20 Meq Kcl) 1,000 mls @ 75 mls/hr IV ASDIRECTED [facility] Last Admin: 09/07/17 06:55 Dose: 75 mls/hr Potassium Chloride (Klor-Con 10) 40 meq PO TID [facility] Stop: 09/05/17 21:01 Last Admin: 09/05/17 21:18 Dose: 40 meq Potassium Chloride (Klor-Con 10) 40 meq PO ONETIME ONE Stop: 09/06/17 10:24 Last Admin: 09/06/17 10:58 Dose: 40 meq - Exam General: Alert, Oriented Neck: Supple Lungs: Normal Respiratory Effort, Rhonchi (r side), Wheezing (r side) Cardiovascular: Regular Rate, Regular Rhythm GI/Abdominal Exam: Normal Bowel Sounds, Soft, Non-Tender Extremities: No Pedal Edema - Problem List & Annotations (1) Elevated liver enzymes SNOMED Code(s): 306144936 Code(s): R74.8 - ABNORMAL LEVELS OF OTHER SERUM ENZYMES Status: Acute Current Visit: Yes (2) Fall SNOMED Code(s): 9922791 Code(s): W19.XXXA - UNSPECIFIED FALL, INITIAL ENCOUNTER Status: Acute Current Visit: Yes Qualifiers: Encounter type: initial encounter Qualified Code(s): W19.XXXA - Unspecified fall, initial encounter (3) Hypokalemia SNOMED Code(s): 90282587 Code(s): E87.6 - HYPOKALEMIA Status: Acute Current Visit: Yes (4) Hyponatremia SNOMED Code(s): 22479263 Code(s): E87.1 - HYPO-OSMOLALITY AND HYPONATREMIA Status: Acute Current Visit: Yes - Problem List Review Problem List Initiated/Reviewed/Updated: Yes - My Orders Last 24 Hours: My Active Orders 09/07/17 20:09 Cooling Warming Measures [RC] ASDIRECTED Heat Therapy [OM.PC] PER UNIT ROUTINE 09/08/17 11:10 RT Aerosol Therapy [RC] ASDIRECTED Albuterol [Proventil Neb Soln] 2.5 mg NEB Q6HRRT PRN 09/08/17 11:30 Budesonide [Pulmicort] 0.5 mg NEB BIDRT 09/08/17 14:00 Albuterol/Ipratropium [DuoNeb 3.0-0.5 MG/3 ML] 3 ml NEB TID Potassium Chloride [Klor-Con 10] 40 meq PO TID 09/09/17 05:15 BASIC METABOLIC PANEL,BMP [CHEM] AM CBC WITH AUTO DIFF [HEME] AM - Plan Plan:: The patient is a 61-year-old gentleman who was brought in after family concern of falling. #1 frequent fall per history The patient appears to have no neurological deficit, CT of the head without contrast showed no acute change. He appears to have good strength in extremities. improving with physical and occupational therapy #2 severe hypokalemia will further replace recheck in the morning with mg, phos Cortisol is normal, TSH is normal #3 hyponatremia improved off IV fluids #4 history of significant alcohol intake will supplement thiamine folate multivitamin No sign of acute withdrawal #5 mildly elevated blood sugar noted will follow with morning labs #6 smoking Use nicotine patch #7 DVT prophylaxis will be with subcutaneous heparin #8 continued with cough, development of fever has r. sided wheezing Concern for bronchitis blood cultures pending Sputum culture pending add pulmicort, duoneb continue azithromycin and ceftriaxone IV treatment
[2017-09-08] MEDS: Potassium Chloride 10 MEQ Tab.ER PO SCH ×2 (11:49→18:00)
[2017-09-08] MEDS: Budesonide 0.5 MG/2 ML Neb Susp NEB SCH ×2 (12:11→18:00)
[2017-09-08] MEDS: Albuterol/Ipratropium 3.0-0.5 MG/3 ML Neb Soln NEB SCH ×3 (15:50→22:34)
[2017-09-08] MEDS: Thiamine 100 MG Tab PO SCH (21:59)
[2017-09-08] MEDS: Multivitamins,Therapeutic Tab PO SCH (21:59)
[2017-09-08] MEDS: Folic Acid 1 MG Tab PO SCH (21:59)
[2017-09-09] MEDS: Heparin Sodium 5,000 Units/ML Vial SUBCUT SCH ×3 (06:58→21:23)
[2017-09-09 07:05] LABS: ANION GAP 11.3; CHLORIDE,CL 96 mmol/L (101-111); SODIUM,NA 133 mmol/L (135-145)
[2017-09-09] MEDS: Albuterol/Ipratropium 3.0-0.5 MG/3 ML Neb Soln NEB SCH ×3 (08:29→21:23)
[2017-09-09] MEDS: Budesonide 0.5 MG/2 ML Neb Susp NEB SCH ×2 (08:29→17:50)
[2017-09-09] MEDS: cefTRIAXone 1 GM Vial IVPUSH SCH (09:29)
[2017-09-09] MEDS: Azithromycin 500 MG in Sodium Chloride 0.9% 250 ML IV SCH (09:29)
--- NOTE | 2017-09-09 10:25 | PCM.PN ---
- General Info Date of Service: 09/09/17 Admission Dx/Problem (Free Text): Admission Diagnosis/Problem Admission Diagnosis/Problem Hypokalemia Subjective Update: still weak Activity level is still limited No nausea no vomiting - Review of Systems General: Reports: Weakness Pulmonary: Reports: No Symptoms Cardiovascular: Reports: No Symptoms Gastrointestinal: Reports: Diarrhea - Patient Data Vitals - Most Recent: Last Vital Signs Temp 36.6 C 09/09/17 07:00 Pulse 81 09/09/17 07:00 Resp 20 09/09/17 07:00 BP 106/85 09/09/17 07:00 Pulse Ox 100 09/09/17 07:00 Weight - Most Recent: 54.431 kg I&O - Last 24 Hours: Intake & Output 09/08/17 09/09/17 09/09/17 22:59 06:59 14:59 Intake Total 590 500 75 Output Total 300 300 400 Balance 290 200 -325 Lab Results Last 24 Hours: Laboratory Results - last 24 hr 09/09/17 09/09/17 Range/Units 06:18 06:18 WBC 5.9 (5.0-10.0) 10^3/uL RBC 4.27 L (4.6-6.2) 10^6/uL Hgb 13.7 L (14.0-18.0) g/dL Hct 39.5 L (40.0-54.0) % MCV 92.5 (80-100) fL MCH 32.1 (27.0-34.0) pg MCHC 34.7 (33.0-35.0) g/dL Plt Count 247 (150-450) 10^3/uL Neut % (Auto) 55.1 (42.2-75.2) % Lymph % (Auto) 21.6 (20.5-50.1) % [place] % (Auto) 19.9 H (2-8) % Eos % (Auto) 2.9 (1.0-3.0) % Baso % (Auto) 0.5 (0.0-1.0) % Sodium 133 L (135-145) mmol/L Potassium 3.3 L (3.6-5.0) mmol/L Chloride 96 L (101-111) mmol/L Carbon Dioxide 29.0 (21.0-31.0) mmol/L Anion Gap 11.3 BUN 4 L (7-18) mg/dL Creatinine 0.5 L (0.6-1.3) mg/dL Est Cr Clr Drug Dosing 114.91 mL/min Estimated GFR (MDRD) > 60 Glucose 96 (74-105) mg/dL Calcium 8.5 (8.4-10.2) mg/dl Phosphorus 4.1 (2.5-4.6) mg/dL Magnesium 1.4 L (1.8-2.5) mg/dL Robby Results Last 24 Hours: Microbiology 09/06/17 10:28 Aerobic Blood Culture - Preliminary Blood - Venous - Lab Draw NO GROWTH AFTER 2 DAYS Anaerobic Blood Culture - Preliminary NO GROWTH AFTER 2 DAYS 09/06/17 10:25 Aerobic Blood Culture - Preliminary Blood - Venous NO GROWTH AFTER 2 DAYS Anaerobic Blood Culture - Preliminary NO GROWTH AFTER 2 DAYS Med Orders - Current: Current Medications Acetaminophen (Tylenol) 650 mg PO Q4H PRN PRN Reason: Pain (Mild 1-3)/fever Last Admin: 09/08/17 22:05 Dose: 650 mg Albuterol (Proventil Neb Soln) 2.5 mg NEB Q6HRRT PRN PRN Reason: sob Last Admin: 09/08/17 12:11 Dose: 2.5 mg Albuterol/Ipratropium (Duoneb 3.0-0.5 Mg/3 Ml) 3 ml NEB TIDRT [facility] Last Admin: 09/09/17 08:29 Dose: 3 ml Budesonide (Pulmicort) 0.5 mg NEB BIDRT [facility] Last Admin: 09/09/17 08:29 Dose: 0.5 mg Ceftriaxone Sodium (Rocephin) 1 gm IVPUSH Q24H [facility] Last Admin: 09/09/17 09:29 Dose: 1 gm Folic Acid (Folic Acid) 1 mg PO BEDTIME [facility] Last Admin: 09/08/17 21:59 Dose: 1 mg Guaifenesin (Robitussin) 100 mg PO Q6H PRN PRN Reason: Cough Heparin Sodium (Porcine) (Heparin Sodium) 5,000 units SUBCUT Q8HR [facility] Last Admin: 09/09/17 06:58 Dose: 5,000 units Azithromycin 500 mg/ Sodium (Chloride) 250 mls @ 250 mls/hr IV Q24H [facility] Last Admin: 09/09/17 09:29 Dose: 100 mls/hr Magnesium Sulfate 2 gm/ Premix 50 mls @ 25 mls/hr IV ONETIME ONE Stop: 09/09/17 12:59 Ibuprofen (Motrin) 400 mg PO Q6H PRN PRN Reason: Pain (mild 1-3) Multivitamins (Thera) 1 each PO BEDTIME [facility] Last Admin: 09/08/17 21:59 Dose: 1 each Ondansetron HCl (Zofran) 4 mg IVPUSH Q6H PRN PRN Reason: Nausea/Vomiting Potassium Chloride (Klor-Con 10) 40 meq PO WITHBREAKFAST [facility] Senna/Docusate Sodium (Senna Plus) 1 tab PO BID [facility] Last Admin: 09/09/17 08:28 Dose: 1 tab Sodium Chloride (Saline Flush) 10 ml FLUSH ASDIRECTED PRN PRN Reason: Keep Vein Open Last Admin: 09/08/17 09:50 Dose: 10 ml Thiamine HCl (Vitamin B-1) 100 mg PO BEDTIME [facility] Last Admin: 09/08/17 21:59 Dose: 100 mg Zolpidem Tartrate (Ambien) 5 mg PO BEDTIME PRN PRN Reason: Sleep Discontinued Medications Potassium Chloride 10 meq/ (Premix) 100 mls @ 100 mls/hr IV Q2H [facility] Stop: 09/05/17 07:44 Last Admin: 09/05/17 06:12 Dose: Not Given Potassium Chloride/Sodium Chloride (Normal Saline With 20 Meq Kcl) 1,000 mls @ 75 mls/hr IV ASDIRECTED [facility] Last Admin: 09/07/17 06:55 Dose: 75 mls/hr Nicotine (Habitrol) 14 mg TRDERM DAILY [facility] Last Admin: 09/08/17 09:49 Dose: Not Given Potassium Chloride (Klor-Con 10) 40 meq PO TID [facility] Stop: 09/05/17 21:01 Last Admin: 09/05/17 21:18 Dose: 40 meq Potassium Chloride (Klor-Con 10) 40 meq PO ONETIME ONE Stop: 09/06/17 10:24 Last Admin: 09/06/17 10:58 Dose: 40 meq Potassium Chloride (Klor-Con 10) 40 meq PO TIDMEALS [facility] Stop: 09/08/17 18:01 Last Admin: 09/08/17 18:00 Dose: 40 meq - Exam General: Alert, Oriented, No Acute Distress Lungs: Clear to Auscultation Cardiovascular: Regular Rate, Regular Rhythm Extremities: No Pedal Edema - Problem List Review Problem List Initiated/Reviewed/Updated: Yes - My Orders Last 24 Hours: My Active Orders 09/09/17 08:00 Potassium Chloride [Klor-Con 10] 40 meq PO WITHBREAKFAST 09/09/17 11:00 Magnesium Sulfate/Water [Magnesium Sulfate 2 GM in Water 50 ML] 2 gm Premix Bag 1 bag IV ONETIME 09/10/17 10:12 BASIC METABOLIC PANEL,BMP [CHEM] Routine MAGNESIUM [CHEM] Routine - Plan Plan:: The patient is a 61-year-old gentleman who was brought in after family concern of falling. #1 frequent fall per history The patient appears to have no neurological deficit, CT of the head without contrast showed no acute change. He appears to have good strength in extremities. improving with physical and occupational therapy #2 severe hypokalemia #3 hyponatremia improved #4 history of significant alcohol intake will supplement thiamine folate multivitamin No sign of acute withdrawal #5 mildly elevated blood sugar noted will follow with morning labs #6 smoking Use nicotine patch #7 DVT prophylaxis will be with subcutaneous heparin #8 continued with cough, development of fever has r. sided wheezing Concern for bronchitis blood cultures pending Sputum culture pending add pulmicort, duoneb continue azithromycin and ceftriaxone IV treatment Plan: Serum magnesium is still low at1.4 I will go ahead and give intravenous magnesium sulfate 2 g now Serum potassium is also low at 3.3 Give patient 40 mEq of potassium chloride now. Start Patient on scheduled potassium chloride 20 mg daily Send sample for repeat visit metabolic panel We'll repeat serum magnesium Possible discharge in the morning
[2017-09-09] MEDS ORDERED: Magnesium Sulfate/Water 2 GM in Premix Bag 1 BAG IV ONE (11:00)
[2017-09-09] MEDS: Potassium Chloride 10 MEQ Tab.ER PO SCH (11:26)
[2017-09-09] MEDS: Acetaminophen 325 MG Tab PO PRN (19:21)
[2017-09-09] MEDS: Thiamine 100 MG Tab PO SCH (21:22)
[2017-09-09] MEDS: Folic Acid 1 MG Tab PO SCH (21:22)
[2017-09-09] MEDS: Multivitamins,Therapeutic Tab PO SCH (21:22)
[2017-09-10] MEDS: Heparin Sodium 5,000 Units/ML Vial SUBCUT SCH (06:20)
[2017-09-10 06:52] LABS: ANION GAP 11.8; CHLORIDE,CL 98 mmol/L (101-111); SODIUM,NA 133 mmol/L (135-145)
[2017-09-10] MEDS: Albuterol/Ipratropium 3.0-0.5 MG/3 ML Neb Soln NEB SCH (06:58)
[2017-09-10] MEDS: Budesonide 0.5 MG/2 ML Neb Susp NEB SCH (06:58)
[2017-09-10] MEDS: Potassium Chloride 10 MEQ Tab.ER PO SCH (08:47)
[2017-09-10] MEDS: cefTRIAXone 1 GM Vial IVPUSH SCH (08:48)
[2017-09-10] MEDS: Sodium Chloride 0.9% 10 ML Syringe FLUSH PRN (08:48)
[2017-09-10] MEDS: Azithromycin 500 MG in Sodium Chloride 0.9% 250 ML IV SCH (08:53)
[2017-09-10] MEDS: Acetaminophen 325 MG Tab PO PRN (09:34)
--- NOTE | 2017-09-10 10:21 | PN ---
DATE: 09/10/2017 SUBJECTIVE: The patient is a 62-year-old gentleman admitted with generalized weakness and noted to have acute bronchitis, hypokalemia, and hyponatremia. The patient was given Rocephin, Zithromax, IV fluids and potassium was also corrected as well as the magnesium. The patient this morning is feeling much better, and he would like to go home. LABORATORY DATA: Lab workup this morning, chem-6; sodium is 133, chloride is 98, potassium is 3.8, glucose is 110, and magnesium level is 1.9 (improvement). OBJECTIVE: Vital Signs: Blood pressure is 130/72, pulse of 99, respiration of 17, and temperature of 99.8. Heart: Regular rate and rhythm. Normal S1 and S2. No gallops. No rubs. Lungs: Equal bilaterally. No crackles. No wheezing. Abdomen: Soft and nontender. Bowel sounds positive. Extremities: Negative for any significant pedal edema. No calf tenderness. PLAN: We will discharge the patient home today. We will continue with Zithromax oral Z-Cornel. We will have him follow up with his primary care physician in 1 week for a recheck with a basic metabolic panel and magnesium level. [facility] /[id number]
--- NOTE | 2017-09-10 18:00 | DISCH ---
FINAL DIAGNOSES: 1. Acute bronchitis. 2. Generalized weakness, secondary to electrolyte imbalance. 3. Hypokalemia. 4. Hypomagnesemia. 5. Hyponatremia. 6. Hypochloremia. BRIEF HISTORY OF PRESENT ILLNESS: Please see H and P. HOSPITAL COURSE: The patient was admitted to General Medicine floor. He was started on IV antibiotics (Rocephin and Zithromax). The patient's potassium and magnesium were repleted and he was also given IV fluids, last normal saline. Blood cultures were sent and this came back negative, and the patient slowly improved, and followup electrolytes showed improvement. Overall, the patient's generalized weakness improved and he was subsequently discharged. The patient will be continued on Zithromax Z-Cornel on discharge and he is going to be set up for followup appointment with his primary care physician in one week for a recheck. CONDITION ON DISCHARGE: Improved. [facility] /[id number]
== END 2017-09-10 12:25 | disposition home or self-care (01) | DRG 641 ==
LOC: DL.ED 17:08 → UNDOADMOB 19:41 → DL.MS 19:41 → OBSVTOIN 09-05 11:30
PROVIDERS: ADMIT Internal Medicine; ATTEND Internal Medicine
DX: E87.6 Hypokalemia (principal); E87.1 Hypo-osmolality and hyponatremia; E87.8 Other disorders of electrolyte and fluid balance, not elsewhere classified; R74.8 Abnormal levels of other serum enzymes; Z91.81 History of falling; F17.210 Nicotine dependence, cigarettes, uncomplicated; W19.XXXA Unspecified fall, initial encounter; R29.6 Repeated falls; R26.2 Difficulty in walking, not elsewhere classified; E83.42 Hypomagnesemia; J20.9 Acute bronchitis, unspecified; M79.605 Pain in left leg; S09.90XA Unspecified injury of head, initial encounter; F10.10 Alcohol abuse, uncomplicated; Y90.0 Blood alcohol level of less than 20 mg/100 ml
CPT/HCPCS: 36415; 70450; 70470; 71045; 72170; 73560-LT; 80048; 80053; 80305; 81001; 82533; 82550; 83735; 84100; 84443; 85025; 87040; 87804; 94640; 96361; 96365; 96366; 96372; 97116-GP; 97162-GP; 97165-GO; 97530-GO; 99285; A9270-GY; G0378; G0480; J0456; J0696; J1644; J3475; J3480; J7050; J7620-GY